=== PATIENT | male | born 2000 | race African-American/Black ===

== ENCOUNTER 2024-12-13 09:57 | Emergency (ER) | payer OTHER ==
[~2024-12-13] VITALS: Ht 188 cm; Wt 118.2 kg
[2024-12-13 09:59] VITALS: BP 143/80; TEMP 98; O2SAT 100
[2024-12-13 10:52] LABS: SOFIA COVID ANTIGEN NEGATIVE (NEGATIVE)
== END 2024-12-13 11:20 | disposition home or self-care (01) ==
LOC: M ED 09:57
DX: R51.9 Headache, unspecified (principal); B34.9 Viral infection, unspecified